=== PATIENT | male | born 1990 | race American Indian/Alaskan Native ===

== ENCOUNTER 2017-03-16 16:30 | Emergency (ER) | payer SELFPAY ==
[2017-03-16] MEDS ORDERED: ZOFRAN IV ONE (17:36)
[2017-03-16] MEDS ORDERED: SUBLIMAZE IV ONE ×2 (17:36→18:00)
--- NOTE | 2017-03-16 17:42 | Emergency Department Report ---
ED Upper Extremity Inj HPI - General Chief Complaint: Shoulder Injury Stated Complaint: L ARM PAIN, POSSIBLE FX Time Seen by Provider: 03/16/17 17:33 Source: patient Mode of arrival: Ambulatory Limitations: No Limitations - History of Present Illness Initial Comments: Patient is 26 years old male was not significant past medical history except for a previous left shoulder dislocation. Patient presented with left shoulder dislocation happened just minutes ago while he was playing basketball. Patient denied any other injury. MD Complaint: Injury to:: left, shoulder -: Sudden, This afternoon Other Extremity Injury: Shoulder: Left Other Injuries: none Worsens With: movement of extremity - Related Data Allergies Allergy/AdvReac Type Severity Reaction Status Date / Time No Known Allergies Allergy Unverified 03/16/17 17:03 ED Review of Systems ROS: Stated complaint: L ARM PAIN, POSSIBLE FX Other details as noted in HPI Comment: All other systems reviewed and negative Constitutional: denies: chills, fever Respiratory: denies: cough, shortness of breath, SOB with exertion Cardiovascular: denies: chest pain, palpitations, dyspnea on exertion Gastrointestinal: denies: abdominal pain, nausea, vomiting, diarrhea, constipation Skin: denies: rash Neurological: denies: headache, weakness, numbness, paresthesias, confusion ED Past Medical Hx - Past Medical History Previous Medical History?: Yes Additional medical history: left shoulder dislocation - Surgical History Past Surgical History?: No - Social History Smoking Status: Current Every Day Smoker Substance Use Type: Alcohol, Marijuana ED Physical Exam - General Limitations: No Limitations General appearance: alert, in distress (due to pain) - Head Head exam: Present: atraumatic, normocephalic, normal inspection - Eye Eye exam: Present: normal appearance, PERRL, EOMI - ENT ENT exam: Present: normal exam, normal orophraynx, mucous membranes moist - Neck Neck exam: Present: normal inspection, full ROM. Absent: tenderness, meningismus, lymphadenopathy, thyromegaly - Respiratory Respiratory exam: Present: normal lung sounds bilaterally. Absent: respiratory distress, wheezes, rales, rhonchi, stridor, chest wall tenderness, accessory muscle use, decreased breath sounds, prolonged expiratory - Cardiovascular Cardiovascular Exam: Present: bradycardia. Absent: irregular rhythm, systolic murmur, diastolic murmur, rubs, gallop - GI/Abdominal GI/Abdominal exam: Present: soft, normal bowel sounds. Absent: tenderness, guarding, rebound, rigid, mass, bruit, pulsatile mass, hernia - Expanded Upper Extremity Exam Left Shoulder Exam: Present: tenderness, deformity, dislocation. Absent: full ROM, swelling, abrasion, laceration, ecchymosis, crepidus, erythema, tenderness over AC joint Upper Arm exam: Present: normal inspection, full ROM Elbow exam: Present: normal inspection, full ROM. Absent: tenderness Forearm Wrist exam: Present: normal inspection, full ROM. Absent: tenderness Hand Wrist exam: Present: normal inspection, full ROM. Absent: tenderness, swelling ED Course Vital Signs 03/16/17 03/16/17 17:03 17:51 Temperature 98.2 F 99.1 F Pulse Rate 56 L 57 L Respiratory 18 12 Rate Blood Pressure 122/65 Blood Pressure 126/80 [Right] O2 Sat by Pulse 99 100 Oximetry - Moderate Sedation Indications: fracture/dislocation redu Mallampati Airway Score: 2 Preparation: middle school math teacher applied, pulse oximeter, capnometry used, supplemental O2 applied, reversal agents at bedside, suction/airway equipment at bedside, IV secured Fentanyl: IV Ketamine: IV Ketamine Dose: 50 Complications: none Interventions: oxygen applied Patient Tolerated Procedure: well, no complications - Orthopedic Joint Reduction Joint #1 Consent Obtained: verbal consent Time Out Performed: Yes Side: left Joint Reduction Location: shoulder Analgesia: moderate sedation Shoulder Technique Used (if applicable): traction/counter-traction Post-Reduction Neuro Exam: intact Post-Reduction Vascular Exam: intact Post Reduction X-Ray Obtained: Yes Post Reduction X-Ray Results: reduced Splint Applied: Yes Patient Tolerated Procedure: well, no complications ED Medical Decision Making - Radiology Data Radiology results: report reviewed Referring Physician: COLLIN ESPARZA Patient Name: COLLEEN MURRIETA Date of : 1990 Sex: Male Report Date: 2017-03-16 Report Status: Finalized Findings [facility] [address] [place] [address] XRay Report Signed Patient: COLLEEN MURRIETA MR#: [id number] : 1990 Acct:[id number] Age/Sex: 26 / M ADM Date: 03/16/17 Loc: ED Attending Dr: Ordering Physician: COLLIN ESPARZA Date of Service: 03/16/17 Procedure(s): XR shoulder 2+V LT Accession Number(s): [id number] cc: COLLIN ESPARZA Fluoro Time In Minutes: FINAL REPORT EXAM: XR SHOULDER 2+V LT HISTORY: left shoulder injury. Poss dislocation TECHNIQUE: Three views of the left shoulder PRIORS: None. FINDINGS: There is anterior inferior dislocation of the humeral head with respect to the glenoid. The bones are normally mineralized. There is no evidence of acute fracture. Visualized lung parenchyma is clear. Soft tissues are unremarkable. IMPRESSION: Anterior inferior dislocation of the left humeral head with respect to the glenoid. Transcribed By: ML Dictated By: FLORENCIA QUINONES MD Electronically Authenticated By: FLORENCIA QUINONES MD Signed Date/Time: 03/16/171431 DD/ 31 TD/TT: 03/16/171431 Critical care attestation.: If time is entered above; I have spent that time in minutes in the direct care of this critically ill patient, excluding procedure time. ED Disposition Clinical Impression: Dislocation of left shoulder joint Disposition: DC-01 TO HOME OR SELFCARE Is pt being admited?: No Condition: Stable Instructions: Shoulder Dislocation (ED) Referrals: RAY WALLACE MD [Staff Physician] - 2-3 Days
[2017-03-16] MEDS ORDERED: VERSED IV ONE (18:00)
[2017-03-16] MEDS ORDERED: BENADRYL ONE (18:05)
[2017-03-16] MEDS ORDERED: BENADRYL IV ONE (18:07)
--- NOTE | 2017-03-16 18:34 | XRay Report ---
FINAL REPORT EXAM: XR SHOULDER 2+V LT HISTORY: left shoulder injury. Poss dislocation TECHNIQUE: Three views of the left shoulder PRIORS: None. FINDINGS: There is anterior inferior dislocation of the humeral head with respect to the glenoid. The bones are normally mineralized. There is no evidence of acute fracture. Visualized lung parenchyma is clear. Soft tissues are unremarkable. IMPRESSION: Anterior inferior dislocation of the left humeral head with respect to the glenoid.
[2017-03-16] MEDS ORDERED: KETALAR IV ONE ×3 (18:35→19:00)
[2017-03-16] MEDS ORDERED: NACL 0.9% 1000 ML 1,000 ML ONE (18:50)
--- NOTE | 2017-03-16 19:35 | XRay Report ---
FINAL REPORT EXAM: XR SHOULDER 1V LT HISTORY: postreduction film TECHNIQUE: Single AP view of the left shoulder PRIORS: Left shoulder series performed earlier on the same day FINDINGS: Single view shows anatomic alignment of the glenohumeral joint. There is no evidence of acute fracture. The soft tissues are unremarkable. IMPRESSION: Post reduction of the left shoulder dislocation.
[2017-03-16 19:36] VITALS: BP 158/100
== END 2017-03-16 20:58 | disposition home or self-care (01) ==
LOC: ED 16:30
DX: S43.015A Anterior dislocation of left humerus, initial encounter (principal); S43.035A Inferior dislocation of left humerus, initial encounter; F17.200 Nicotine dependence, unspecified, uncomplicated; F12.10 Cannabis abuse, uncomplicated; X58.XXXA Exposure to other specified factors, initial encounter; Y93.67 Activity, basketball; Y99.8 Other external cause status; Y92.89 Other specified places as the place of occurrence of the external cause
CPT/HCPCS: 23650; 73020; 73030; 96374; 96375; 99284; J1200; J2405; J3010; J7030